=== PATIENT | female | born 1980 | race American Indian/Alaskan Native ===

== ENCOUNTER 2018-05-11 15:48 | Emergency (ER) | payer SELFPAY ==
[2018-05-11 15:48] VITALS: BMI 32.5
--- NOTE | 2018-05-11 17:01 | C.PDOC ---
History Of Present Illness 37-year-old female presents to the ED with new-onset low back pain that began this morning. Pain has been occasionally radiating to the left chest. On arrival left chest pain is now resolved, patient still complaining of residual back pain. Her back pain is sharp and worsened with deep inspiration or movement. Associated with dyspnea on exertion. Patient admits she is noncompliant with her blood pressure meds. Denies prior history of cardiac disease and leg pain/swelling. Patient reports improvement after given NG, ASA by EMS. EXAM MILD DIST NONTOXIC BACK +L SCAPULAR AREA TEND NO SWELL. LIMITED ROM DUE TO PAIN. NO SPINAL TEND LUNGS CTA B/L NO W/R/R ABD NEG EXT NO EDEMA, NONTEND REMAINDER NEG Time Seen by Provider: 05/11/18 16:51 Chief Complaint (Nursing): Back Pain History Per: Patient History/Exam Limitations: no limitations Onset/Duration Of Symptoms: Hrs Current Symptoms Are (Timing): Still Present Past Medical History Reviewed: Historical Data, Nursing Documentation, Vital Signs Vital Signs: Last Vital Signs Temp 98.4 F 05/11/18 18:17 Pulse 92 H 05/11/18 18:17 Resp 17 05/11/18 18:17 BP 118/74 05/11/18 18:17 Pulse Ox 96 05/11/18 18:17 - Medical History PMH: HTN Family History: States: Unknown Family Hx - Social History Hx Tobacco Use: Yes Hx Alcohol Use: Yes Hx Substance Use: No - Immunization History Hx Tetanus Toxoid Vaccination: No Hx Influenza Vaccination: No Hx Pneumococcal Vaccination: No Review Of Systems Except As Marked, All Systems Reviewed And Found Negative. Constitutional: Negative for: Fever, Chills Cardiovascular: Positive for: Chest Pain (now resolved) Respiratory: Positive for: SOB with Excertion Gastrointestinal: Negative for: Nausea, Vomiting Genitourinary: Negative for: Dysuria, Frequency, Incontinence Musculoskeletal: Positive for: Back Pain. Negative for: Leg Pain (or swelling) Neurological: Negative for: Weakness, Numbness, Headache, Dizziness Physical Exam - Physical Exam Appears: Non-toxic, In Acute Distress (mild distress) Skin: Normal Color, Warm Head: Atraumatic, Normacephalic Eye(s): bilateral: Normal Inspection Oral Mucosa: Moist Neck: Normal ROM Chest: Symmetrical, No Tenderness Cardiovascular: Rhythm Regular, No Murmur Respiratory: Normal Breath Sounds, No Rales, No Rhonchi, No Wheezing Gastrointestinal/Abdominal: Soft, No Tenderness, No Distention Back: No Vertebral Tenderness, Decreased ROM (Limited ROM secondary to pain), Paraspinal Tenderness (Left scapular area tender to palpation) Extremity: Bilateral: Atraumatic, No Pedal Edema, Normal Color And Temperature Pulses: Left Dorsalis Pedis: Normal, Right Dorsalis Pedis: Normal Neurological/Psych: Oriented x3, Normal Speech, Normal Cranial Nerves, Other ( No focal deficits) ED Course And Treatment - Laboratory Results Result Diagrams: 05/11/18 17:17 05/11/18 17:17 ECG: Interpreted By Me ECG Rhythm: Sinus Rhythm, Sinus Tachycardia (101) ECG Interpretation: Abnormal O2 Sat by Pulse Oximetry: 96 (RA) Pulse Ox Interpretation: Normal - Radiology CXR: Viewed By Me, Read By Radiologist CXR Interpretation: Yes: No Acute Disease. No: Infiltrates Progress - Re-Evaluation Re-evaluation Note: 05/11/18 18:13 FEELS BETTER SP TORADOL. VSS. - Data Reviewed Data Reviewed: Lab, Diagnostic imaging, EKG Medical Decision Making Medical Decision Making: Impression: Back pain, resolved chest pain Initial Plan: --EKG --CMP --Troponin I --CBC --D dimer --Chest X-Ray --Toradol 30 mg IVP Disposition Counseled Patient/Family Regarding: Studies Performed, Diagnosis, Need For Followup - Disposition Referrals: YOUR,PMD [Other] Disposition: HOME/ ROUTINE Disposition Time: 18:14 Condition: IMPROVED Additional Instructions: TAKE HYPERTENSION MEDICATIONS PRESCRIBED. TAKE MOTRIN 3 TABS EVERY 6-8 HRS NEEDED. FOLLOW UP WITH YOUR PMD. RETURN IF WORSENING SYMPTOMS. Instructions: Upper Back Pain (DC) Forms: [employer] [facility] (New Zealander), Work Excuse - Clinical Impression Clinical Impression: Back pain, Chest pain - Scribe Statement The provider has reviewed the documentation as recorded by the David Tolentino Provider Attestation: All medical record entries made by the Yesyibtonny were at my direction and personally dictated by me. I have reviewed the chart and agree that the record accurately reflects my personal performance of the history, physical exam, medical decision making, and the department course for this patient. I have also personally directed, reviewed, and agree with the discharge instructions and disposition.
[2018-05-11 17:25] LABS: BASO % 0.3 % (0.0-2.0); EOS % 0.5 % (0.0-4.0); HEMOGLOBIN 11.3 g/dL (11.0-16.0); LYMPH # 1.8 K/uL (1.0-4.3); LYMPH % 22.6 % (20.0-40.0); MEAN CELL VOLUME 88.3 fL (81.0-99.0); MEAN CORPUSCULAR HEMOGLOBIN 28.5 pg (27.0-31.0); MEAN CORPUSCULAR HGB CONC 32.3 g/dL (33.0-37.0); MEAN PLATELET VOLUME 9.6 fL (7.2-11.7); MONO # 0.9 K/uL (0.0-0.8); MONO % 11.6 % (0.0-10.0); NEUT # 5.3 K/uL (1.8-7.0); NRBC % 0.1 % (0.0-2.0); RBC 3.95 Mil/uL (3.80-5.20); RED CELL DISTRIBUTION WIDTH 14.5 % (11.5-14.5); WHITE BLOOD COUNT 8.2 K/uL (4.8-10.8)
--- NOTE | 2018-05-11 17:32 | RAD ---
Date of service: 05/11/2018 PROCEDURE: CHEST RADIOGRAPH, 1 VIEW HISTORY: chest pain COMPARISON: Chest radiograph dated 12/22/2015. FINDINGS: LUNGS: Clear. PLEURA: No pneumothorax or pleural fluid seen. CARDIOVASCULAR: Normal. OSSEOUS STRUCTURES: No significant abnormalities. VISUALIZED UPPER ABDOMEN: Normal. OTHER FINDINGS: None. IMPRESSION: No active disease.
[2018-05-11 17:42] LABS: ALB/GLOB RATIO 1.2 (1.0-2.1); ALT/SGPT 30 U/L (9-52); AST/SGOT 30 U/L (14-36); BLOOD UREA NITROGEN 8 mg/dL (7-17); CALCIUM 9.2 mg/dl (8.6-10.4); GFR AFRICAN-AMERICAN > 60; GFR NON-AFRICAN AMERICAN > 60
[2018-05-11 17:50] VITALS: PULSE 92; RESP 17
[2018-05-11 18:16] VITALS: O2SAT 96
[2018-05-11 18:18] VITALS: BP 118/74; TEMP 98.4
--- NOTE | 2018-05-12 12:09 | CARD ---
APPROVED REPORT Date of service: 05/11/2018 EKG Measurement Heart [id number] [place] 130P38 [id number] <Conclusion> Sinus tachycardia Nonspecific T wave abnormality Abnormal ECG
== END 2018-05-11 18:25 | disposition home or self-care (01) ==
LOC: C.ER 15:48
DX: M54.5 Low back pain (principal); R07.9 Chest pain, unspecified
CPT/HCPCS: 36415; 71045; 80053; 84484; 85025; 85378; 93005; 96374; 99284; J1885

== ENCOUNTER 2018-09-04 10:27 | Emergency (ER) | payer BC, OTHER ==
[2018-09-04 10:27] VITALS: BMI 32.5
[2018-09-04 10:40] VITALS: TEMP 97.5; O2SAT 96
[2018-09-04] MEDS ORDERED: Albuterol-Ipratrop 3 mg / 0.5 (3 ml) UD INH STA ×2 (11:35→12:44)
[2018-09-04] MEDS ORDERED: Albuterol-Ipratrop 3 mg / 0.5 (3 ml) UD ONE ×2 (11:42→12:53)
--- NOTE | 2018-09-04 12:50 | C.PDOC ---
History Of Present Illness 37 year old female with a history of asthma/COPD presents to the ED for evaluation of cough, headache, and body aches for 3-4 days. Patient reports prior visit to PMD on Tuesday, who prescribed cough medication, which she has not yet taken. Admits to using an unknown inhaler at home, and albuterol nebulizer without any improvement. Denies fever, nausea, vomiting, sick contact, flu vaccine this year. Time Seen by Provider: 09/04/18 11:08 Chief Complaint (Nursing): Cough, Cold, Congestion History Per: Patient History/Exam Limitations: no limitations Onset/Duration Of Symptoms: Days (4) Current Symptoms Are (Timing): Still Present Location Of Pain: Headache Sick Contacts (Context): None Associated Symptoms: Cough, Sputum. denies: Fever, Sore Throat, Nausea, Vomiting Ear Symptoms: Bilateral: None Past Medical History Reviewed: Historical Data, Nursing Documentation, Vital Signs Vital Signs: Last Vital Signs Temp 97.5 F L 09/04/18 10:36 Pulse 107 H 09/04/18 10:36 Resp 18 09/04/18 10:36 BP 151/90 H 09/04/18 10:36 Pulse Ox 96 09/04/18 10:36 - Medical History PMH: Asthma, COPD, HTN Family History: States: Unknown Family Hx - Social History Hx Tobacco Use: Yes Hx Alcohol Use: Yes Hx Substance Use: No - Immunization History Hx Tetanus Toxoid Vaccination: No Hx Influenza Vaccination: No Hx Pneumococcal Vaccination: No Review Of Systems Constitutional: Positive for: Malaise, Other (myalgias). Negative for: Fever, Chills ENT: Negative for: Ear Pain, Throat Pain Cardiovascular: Negative for: Chest Pain Respiratory: Positive for: Cough, Shortness of Breath Gastrointestinal: Negative for: Nausea, Vomiting, Abdominal Pain Skin: Negative for: Rash Neurological: Positive for: Headache. Negative for: Weakness, Numbness Physical Exam - Physical Exam Appears: Non-toxic, No Acute Distress Skin: Warm, Dry Head: Atraumatic, Normacephalic Eye(s): bilateral: Normal Inspection Ear(s): Bilateral: Normal Nose: Other (congested. ) Oral Mucosa: Moist Throat: No Erythema, No Exudate Neck: Normal ROM, Supple Cardiovascular: Rhythm Regular, No Murmur Respiratory: Decreased Breath Sounds (bilaterally, worse on the right ), No Accessory Muscle Use, No Rales, No Rhonchi, No Wheezing Neurological/Psych: Oriented x3, Normal Speech, Normal Cognition ED Course And Treatment O2 Sat by Pulse Oximetry: 96 (RA) Pulse Ox Interpretation: Normal Medical Decision Making Medical Decision Making: Plan: -CXR Duoneb Zithromax Prednisone POC Urine Influenza A B 1330 pt feeling better after nebs with increased air movement,no wheezing. no infiltrate on xray. flu negative. will d/c with zpak and prednisone. advised not to use inhaler with steroids while taking po steroids, pt understands. pt with pf 330 after second neb., max pf unknown. Disposition Counseled Patient/Family Regarding: Studies Performed, Diagnosis, Need For Followup, Rx Given - Disposition Referrals: Abel Hardy MD [Staff Provider] - Disposition: HOME/ ROUTINE Disposition Time: 13:46 Condition: IMPROVED Additional Instructions: Finish steroids and antibiotics as prescribed., Use albuterol inhaler 3-4 times per day. Use albuterol inhaler 1-2 puffs every 6 hours if needed. Follow up with Dr Hardy in 1-2 days. Do not take inhaled steroid until finish taking steroids by mouth. Return to ER for any worse symptoms. Take Tylenol or Motrin for pain if needed. Prescriptions: Albuterol 0.083% [Albuterol 0.083% Inhal Kari (2.5 mg/3 ml) UD] 2.5 mg IH TID #100 neb Azithromycin [Zithromax] 250 mg PO DAILY #4 tab predniSONE [predniSONE Tab] 2 tab PO DAILY #8 tab Instructions: Upper Respiratory Infection (ED) Forms: General Discharge Instructions, [facility] (Romanian), Work Excuse - Clinical Impression Clinical Impression: Upper respiratory infection - PA / ACCELERATOR SYSTEMS DIRECTOR / Resident Statement MD/DO has reviewed & agrees with the documentation as recorded. - Scribe Statement The provider has reviewed the documentation as recorded by the Scribe (Marleny Mcmillan) All medical record entries made by the Scribe were at my direction and personally dictated by me. I have reviewed the chart and agree that the record accurately reflects my personal performance of the history, physical exam, medical decision making, and the department course for this patient. I have also personally directed, reviewed, and agree with the discharge instructions and disposition.
--- NOTE | 2018-09-04 13:29 | RAD ---
Date of service: 09/04/2018 HISTORY: coughand wheeze COMPARISON: 05/11/2018 TECHNIQUE: Chest PA and lateral FINDINGS: LUNGS: No active pulmonary disease. PLEURA: No significant pleural effusion identified. No pneumothorax apparent. CARDIOVASCULAR: No aortic atherosclerotic calcification present. Normal cardiac size. No pulmonary vascular congestion. OSSEOUS STRUCTURES: No significant abnormalities. VISUALIZED UPPER ABDOMEN: Normal. OTHER FINDINGS: None. IMPRESSION: No active disease.
[2018-09-05 00:20] VITALS: BP 142/90; PULSE 94; RESP 16
== END 2018-09-04 13:57 | disposition home or self-care (01) ==
LOC: C.ER 10:27
DX: J06.9 Acute upper respiratory infection, unspecified (principal)

== ENCOUNTER 2018-09-07 18:58 | Emergency (ER) | payer SELFPAY ==
[2018-09-07 18:58] VITALS: BMI 32.5
[2018-09-07 19:08] VITALS: BP 151/96; PULSE 90; RESP 16; TEMP 98.6; O2SAT 98
[2018-09-07] MEDS ORDERED: Tdap Vaccine 0.5 ml Vial (10-64 yrs) IM ONE ×2 (19:23→19:37)
[2018-09-07] MEDS ORDERED: Bacitracin 500 Units/gm Oint Foilpak UD TOP ONE (19:24)
[2018-09-07] MEDS ORDERED: Lidocaine Hydrochloride 5 ML INJ ONE (19:24)
[2018-09-07] MEDS ORDERED: Bacitracin 500 Units/gm Oint Foilpak UD ONE (19:37)
--- NOTE | 2018-09-07 19:50 | C.PDOC ---
History Of Present Illness 37 year old female presents to the ED for evaluation of a laceration to the left 2nd finger s/p injury sustained approximately 30 minutes prior to arrival. Patient reports she cut her index finger on an open can of tuna. Notes she is right hand dominant. Denies other injuries and any other associated symptoms. Time Seen by Provider: 09/07/18 19:12 Chief Complaint (Nursing): Abnormal Skin Integrity History Per: Patient History/Exam Limitations: no limitations Onset/Duration Of Symptoms: Hrs Current Symptoms Are (Timing): Still Present Past Medical History Reviewed: Historical Data, Nursing Documentation, Vital Signs Vital Signs: Last Vital Signs Temp 98.6 F 09/07/18 19:06 Pulse 90 09/07/18 19:06 Resp 16 09/07/18 19:06 BP 151/96 H 09/07/18 19:06 Pulse Ox 98 09/07/18 19:06 - Medical History PMH: Asthma, COPD, HTN Family History: States: Unknown Family Hx - Social History Hx Tobacco Use: Yes Hx Alcohol Use: Yes Hx Substance Use: No - Immunization History Hx Tetanus Toxoid Vaccination: No Hx Influenza Vaccination: No Hx Pneumococcal Vaccination: No Review Of Systems Skin: Positive for: Other (laceration to the left index finger. ) Physical Exam - Physical Exam Appears: Well, Non-toxic, No Acute Distress Skin: Warm, Dry, Other (1cm linear laceration to the left 2nd finger. ) Head: Atraumatic, Normacephalic Eye(s): bilateral: Normal Inspection, PERRL, EOMI Oral Mucosa: Moist Neck: Normal ROM Extremity: Normal ROM, Capillary Refill (< 2 sec), No Swelling Pulses: Left Radial: Normal, Right Radial: Normal Neurological/Psych: Oriented x3, Normal Speech, Normal Motor, Normal Sensation Gait: Steady ED Course And Treatment O2 Sat by Pulse Oximetry: 98 (RA) Pulse Ox Interpretation: Normal Procedure: Wound Repair - Time Out Time Out: Side verified, Site verified - Procedure Procedure: Wound Repair: Finger laceration - Consent Obtained Consent obtained: Verbal - Performed by Performed by: Mid-level Provider - Indications Indication(s):: Laceration - Location Finger:: Left, Index Shape:: Linear Depth:: Epidermis - Anesthetic Technique Anesthetic Technique: Local Local/Regional Anesthetic:: Lidocaine 2% - Debris Debris:: None - Irrigated Irrigated with ml of normal saline: 500cc pressurized saline and betadine - Complexity Complexity:: Simple (one layer) - Wound repair method Sutures:: # (x4), Size (4-0), Type (nylon ), Technique (simple) - Muscle repiar layer closed with Muscle repair layer closed with:: Abx ointment applied, Dressing applied, Tetanus ordered - Patient tolerated procedure Patient Tolerated Procedure:: Well Medical Decision Making Medical Decision Making: Plan: -Tetanus Procedure note: x4 stitches. Tetanus given. Progress/Update: Patient stable for discharge home. Prescribed Bacitracin. Disposition - Disposition Referrals: Abel Hardy MD [Staff Provider] - Disposition: HOME/ ROUTINE Disposition Time: 19:50 Condition: STABLE Additional Instructions: Keep the wound covered for today and tomorrow. Uncover it on Tuesday. Then wash twice and day with soap and water and then apply bacitracin. Keep it covered. Sutures to be removed within 7 days. Return if worsened Prescriptions: Bacitracin Ointment [Bacitracin] 30 gm TOP BID #1 tube Instructions: Laceration Repair Forms: [facility] [employer] [facility] (Ethiopian), Work Excuse - Clinical Impression Clinical Impression: Laceration of finger - PA / MACHINE STRAP BUCKLER / Resident Statement MD/DO has reviewed & agrees with the documentation as recorded. - Scribe Statement The provider has reviewed the documentation as recorded by the Scribe (Marleny Mcmillan) All medical record entries made by the Scribe were at my direction and personally dictated by me. I have reviewed the chart and agree that the record accurately reflects my personal performance of the history, physical exam, medical decision making, and the department course for this patient. I have also personally directed, reviewed, and agree with the discharge instructions and disposition.
== END 2018-09-07 20:13 | disposition home or self-care (01) ==
LOC: C.ER 18:58
DX: S61.211A Laceration without foreign body of left index finger without damage to nail, initial encounter (principal); W45.8XXA Other foreign body or object entering through skin, initial encounter

== ENCOUNTER 2018-09-20 20:24 | Emergency (ER) | payer SELFPAY ==
[2018-09-20 20:25] VITALS: BMI 32.5
[2018-09-20 20:38] VITALS: BP 145/103; PULSE 102; TEMP 98.3; O2SAT 97
[2018-09-20] MEDS ORDERED: Bacitracin 500 Units/gm Oint Foilpak UD TOP ONE (21:02)
[2018-09-20] MEDS ORDERED: Bacitracin 500 Units/gm Oint Foilpak UD ONE (21:04)
[2018-09-20 21:21] VITALS: RESP 20
--- NOTE | 2018-09-20 21:26 | C.PDOC ---
History Of Present Illness 37 year old female presents to the ED for suture removal. Patient was evaluated in the ED on 09/07 after she accidentally cut her left 2nd finger while opening a can of tuna. Patient states the wound has been healing well. She denies fever, chills, discharge or pain. Time Seen by Provider: 09/20/18 20:39 Chief Complaint (Nursing): Suture/Staple Removal History Per: Patient History/Exam Limitations: no limitations Onset/Duration Of Symptoms: Days Ago Current Symptoms Are (Timing): Still Present Location Of Injury: Left: Hand (2nd finger ) Quality Of Symptoms: denies: Painful, Itching, Swollen, Draining Additional History Per: Patient Past Medical History Reviewed: Historical Data, Nursing Documentation, Vital Signs Vital Signs: Last Vital Signs Temp 98.3 F 09/20/18 20:35 Pulse 102 H 09/20/18 20:35 Resp 20 09/20/18 21:19 BP 145/103 H 09/20/18 20:35 Pulse Ox 97 09/20/18 20:35 - Medical History PMH: Asthma, COPD, HTN Surgical History: No Surg Hx Family History: States: Unknown Family Hx - Social History Hx Tobacco Use: Yes Hx Alcohol Use: Yes Hx Substance Use: No - Immunization History Hx Tetanus Toxoid Vaccination: No Hx Influenza Vaccination: No Hx Pneumococcal Vaccination: No Review Of Systems Skin: Positive for: Other (suture removal from left second finger ) Physical Exam - Physical Exam Appears: Non-toxic, No Acute Distress Skin: Normal Color, Warm, Dry, Other (healing wound to left second finger with 4 sutures intact. no signs of infection ) Extremity: Normal ROM Neurological/Psych: Normal Speech, Normal Cognition ED Course And Treatment O2 Sat by Pulse Oximetry: 97 (on RA) Pulse Ox Interpretation: Normal Medical Decision Making Medical Decision Making: Progress: four sutures removed successfully by me. Patient tolerated well and is stable for discharge. Disposition - Disposition Referrals: Maritza Markham MD [Staff Provider] - Disposition: HOME/ ROUTINE Disposition Time: 21:00 Condition: STABLE Additional Instructions: Follow up with the medical doctor within 1-2 days. Return if worsened. Instructions: Stitches Removal Forms: [employer] ([place]er) - Clinical Impression Clinical Impression: Removal of suture - PA / MARKET RESEARCH ASSISTANT / Resident Statement MD/DO has reviewed & agrees with the documentation as recorded. - Scribe Statement The provider has reviewed the documentation as recorded by the Scribe (Akua Khanna) All medical record entries made by the Scribe were at my direction and personally dictated by me. I have reviewed the chart and agree that the record accurately reflects my personal performance of the history, physical exam, medical decision making, and the department course for this patient. I have also personally directed, reviewed, and agree with the discharge instructions and disposition.
== END 2018-09-20 21:20 | disposition home or self-care (01) ==
LOC: C.ER 20:24
DX: Z48.02 Encounter for removal of sutures (principal)

== ENCOUNTER 2019-01-15 20:48 | Emergency (ER) | payer OTHER ==
[2019-01-15 20:48] VITALS: BMI 32.5
[2019-01-15 21:13] VITALS: BP 139/90; PULSE 97; RESP 20; TEMP 98.3; O2SAT 98
--- NOTE | 2019-01-15 21:49 | C.PDOC ---
History Of Present Illness 38 year old female presents with productive cough for several days. Denies fever. Patient reports she is a smoker, denies asthma exacerbation. She reports pleuritic pain worse from coughing. Denies other associated symptoms. PROD COUGH X SEV DAYS. NO FEVER. +SMOKER. DENIES ASTHMA EXAC. +PLEURITIC PAIN WORSE FROM COUGHING. NO OTHER ASSOC SX EXAM NONTOXIC LUNGS CTA B/L NO W/R/R +OCC WET COUGH SPEAKING FULL SENTENCES NO RETRACTION REMAINDER NEG Time Seen by Provider: 01/15/19 21:42 Chief Complaint (Nursing): Flu-like Symptoms History Per: Patient History/Exam Limitations: no limitations Onset/Duration Of Symptoms: Days Current Symptoms Are (Timing): Still Present Location Of Pain: Other (Pleuritic) Sick Contacts (Context): None Associated Symptoms: Cough, Sputum. denies: Fever Recent travel outside of the [place]: No Past Medical History Reviewed: Historical Data, Nursing Documentation, Vital Signs Vital Signs: Last Vital Signs Temp 98.3 F 01/15/19 21:12 Pulse 97 H 01/15/19 21:12 Resp 20 01/15/19 21:12 BP 139/90 01/15/19 21:12 Pulse Ox 98 01/15/19 21:12 - Medical History PMH: Asthma, COPD, HTN, Hypercholesterolemia Family History: States: Unknown Family Hx - Social History Hx Tobacco Use: Yes Hx Alcohol Use: Yes Hx Substance Use: No - Immunization History Hx Tetanus Toxoid Vaccination: No Hx Influenza Vaccination: No Hx Pneumococcal Vaccination: No Review Of Systems Except As Marked, All Systems Reviewed And Found Negative. Constitutional: Negative for: Fever, Chills Respiratory: Positive for: Cough, Pleuritic Pain, Sputum Physical Exam - Physical Exam Appears: Non-toxic Skin: Normal Color, Warm, No Rash Head: Atraumatic, Normacephalic Eye(s): bilateral: Normal Inspection Ear(s): Bilateral: Normal Nose: Normal Oral Mucosa: Moist Throat: Normal, No Erythema, No Exudate Neck: Normal, Supple Chest: Symmetrical, No Tenderness Cardiovascular: Rhythm Regular Respiratory: Normal Breath Sounds, No Accessory Muscle Use, No Rales, No Rhonchi, No Wheezing, Other (Occasional wet cough, speaking in complete sentences) Gastrointestinal/Abdominal: Soft, No Tenderness Neurological/Psych: Oriented x3, Normal Speech Gait: Steady ED Course And Treatment O2 Sat by Pulse Oximetry: 98 (Room air) Pulse Ox Interpretation: Normal Medical Decision Making Medical Decision Making: Plan: * Perri asif Disposition Counseled Patient/Family Regarding: Diagnosis, Need For Followup, Rx Given - Disposition Referrals: YOUR,PMD [Other] Disposition: HOME/ ROUTINE Disposition Time: 21:48 Condition: IMPROVED Prescriptions: Azithromycin 250 mg PO DAILY #6 tab Benzonatate [Tessalon Perles] 200 mg PO TID PRN #15 sgl PRN Reason: Cough Ibuprofen [Motrin] 600 mg PO Q6 #30 tab Instructions: Acute Bronchitis, Adult (DC) Forms: [employer] (Hungarian), Work Excuse - Clinical Impression Clinical Impression: Bronchitis - Scribe Statement The provider has reviewed the documentation as recorded by the Scribe Ankur Pineda All medical record entries made by the Scribe were at my direction and personally dictated by me. I have reviewed the chart and agree that the record accurately reflects my personal performance of the history, physical exam, medical decision making, and the department course for this patient. I have also personally directed, reviewed, and agree with the discharge instructions and disposition.
--- NOTE | 2019-01-18 06:47 | CARD ---
APPROVED REPORT Date of service: 01/15/2019 EKG Measurement Heart [id number] IN 126P38 [id number] <Conclusion> Normal sinus rhythm Normal ECG
== END 2019-01-15 21:58 | disposition home or self-care (01) ==
LOC: C.ER 20:48
DX: J40 Bronchitis, not specified as acute or chronic (principal); E78.00 Pure hypercholesterolemia, unspecified; I10 Essential (primary) hypertension; Z72.0 Tobacco use

== ENCOUNTER 2019-02-19 19:06 | Emergency (ER) | payer OTHER ==
[2019-02-19 19:07] VITALS: BMI 32.5
[2019-02-19 19:13] VITALS: O2SAT 97
--- NOTE | 2019-02-19 19:39 | C.PDOC ---
Time Seen by Provider: 02/19/19 19:38 Chief Complaint (Nursing): Chest Pain Past Medical History Vital Signs: Last Vital Signs Temp 97.6 F 02/19/19 19:10 Pulse 114 H 02/19/19 19:10 Resp 20 02/19/19 19:10 BP 134/82 02/19/19 19:10 Pulse Ox 97 02/19/19 19:10 Primary Care Provider: Abel Hardy - Medical History PMH: Asthma, COPD, HTN, Hypercholesterolemia Family History: States: Unknown Family Hx - Social History Hx Tobacco Use: Yes Hx Alcohol Use: Yes Hx Substance Use: No - Immunization History Hx Tetanus Toxoid Vaccination: No Hx Influenza Vaccination: No Hx Pneumococcal Vaccination: No ED Course And Treatment ECG: Interpreted By Me, Viewed By Me ECG Rhythm: Sinus Rhythm (102), Nonspecific Changes O2 Sat by Pulse Oximetry: 97 Pulse Ox Interpretation: Normal - Radiology CXR: Interpreted by Me, Viewed By Me Disposition Counseled Patient/Family Regarding: Studies Performed, Diagnosis - Disposition Disposition Time: 19:39
--- NOTE | 2019-02-19 19:40 | C.PDOC ---
History Of Present Illness Patient presents to the ED c/o chest pain with deep inspiration. Patient reports pain is associated with a cough and chills. Patient was for bronchitis a week ago. Patient states she still smokes couple of cigarettes a day. Patient able to speak in complete sentences. Patient denies fever, headache, nausea, vomit, rash, SOB, palpitations, weakness, numbness, recent travel, sick contacts. Time Seen by Provider: 02/19/19 19:38 Chief Complaint (Nursing): Chest Pain History Per: Patient History/Exam Limitations: no limitations Onset/Duration Of Symptoms: Days Current Symptoms Are (Timing): Still Present Recent travel outside of the [place]: No Additional History Per: Patient Past Medical History Reviewed: Historical Data, Nursing Documentation, Vital Signs Vital Signs: Last Vital Signs Temp 97.6 F 02/19/19 19:10 Pulse 114 H 02/19/19 19:10 Resp 20 02/19/19 19:10 BP 134/82 02/19/19 19:10 Pulse Ox 97 02/19/19 19:10 Primary Care Provider: Abel Hardy - Medical History PMH: Asthma, COPD, HTN, Hypercholesterolemia Surgical History: No Surg Hx Family History: States: Unknown Family Hx - Social History Hx Tobacco Use: Yes Hx Alcohol Use: Yes Hx Substance Use: No - Immunization History Hx Tetanus Toxoid Vaccination: No Hx Influenza Vaccination: No Hx Pneumococcal Vaccination: No Review Of Systems Constitutional: Positive for: Chills. Negative for: Fever ENT: Negative for: Nose Discharge, Nose Congestion Cardiovascular: Positive for: Chest Pain Respiratory: Positive for: Cough. Negative for: Shortness of Breath Gastrointestinal: Negative for: Nausea, Vomiting, Abdominal Pain Skin: Negative for: Rash Neurological: Negative for: Weakness, Numbness, Headache, Dizziness Physical Exam - Physical Exam Appears: Non-toxic, No Acute Distress Skin: Warm, Dry Head: Normacephalic Eye(s): bilateral: Normal Inspection Oral Mucosa: Moist Neck: Supple Chest: Symmetrical Cardiovascular: Rhythm Regular Respiratory: No Rales, No Rhonchi, No Wheezing Gastrointestinal/Abdominal: Soft, No Tenderness, No Distention Extremity: Bilateral: Atraumatic, Normal Color And Temperature, Normal ROM Neurological/Psych: Oriented x3, Normal Speech, Normal Cognition Gait: Steady ED Course And Treatment - Laboratory Results Result Diagrams: 02/19/19 20:35 02/19/19 20:35 ECG: Interpreted By Me, Viewed By Me ECG Rhythm: Sinus Rhythm (102), Nonspecific Changes O2 Sat by Pulse Oximetry: 97 (ON RA) Pulse Ox Interpretation: Normal - Radiology CXR: Interpreted by Me, Viewed By Me CXR Interpretation: No: Infiltrates, Fracture, Pnemothorax Progress Note: Plan: - VBG. - EKG. - Labs. - UA Reevaluation Time: 22:51 Reassessment Condition: Improved Medical Decision Making Medical Decision Making: I considered the following diagnoses: acute coronary syndrome, pulmonary embolism, lower respiratory infection, aortic dissection/aneurysm, pneumothorax, pericarditis, esophagitis/GERD, zoster and esophageal rupture but found them to be unlikely based on the history, physical exam, and diagnostics. My conclusions regarding the unlikely diagnoses were based on: the absence of significant EKG abnormalities, the lack of suggestive x-ray findings, the absence of significant abnormalities on cardiac monitoring, the absence of asymmetric pulses, Pt is cp free and wants to go home Disposition Counseled Patient/Family Regarding: Studies Performed, Diagnosis, Need For Followup, Rx Given - Disposition Referrals: Abel Hardy MD [Staff Provider] - Disposition: HOME/ ROUTINE Disposition Time: 19:40 Condition: FAIR Additional Instructions: Please return if symptoms recur Prescriptions: Albuterol HFA [Ventolin HFA 90 mcg/actuation (8 g)] 2 puff IH [id number] PRN #1 puff PRN Reason: Wheezing Naproxen [Naprosyn] 1 tab PO BID PRN #25 tab PRN Reason: Pain Instructions: Costochondritis (DC) Forms: [facility] (Algerian) - Clinical Impression Clinical Impression: Pleuritic pain, Costochondral chest pain - Scribe Statement The provider has reviewed the documentation as recorded by the Scribe Kevon Javed All medical record entries made by the Scribe were at my direction and personally dictated by me. I have reviewed the chart and agree that the record accurately reflects my personal performance of the history, physical exam, medical decision making, and the department course for this patient. I have also personally directed, reviewed, and agree with the discharge instructions and disposition.
[2019-02-19 20:41] LABS: HCG,QUALITATIVE URINE NEGATIVE (NEGATIVE)
[2019-02-19 20:42] LABS: BASO # 0.1 K/uL (0.0-0.2); BASO % 0.5 % (0.0-2.0); EOS % 0.3 % (0.0-4.0); LYMPH # 1.5 K/uL (1.0-4.3); LYMPH % 15.7 % (20.0-40.0); MEAN CELL VOLUME 79.7 fL (81.0-99.0); MEAN CORPUSCULAR HGB CONC 32.6 g/dL (33.0-37.0); MEAN PLATELET VOLUME 8.9 fL (7.2-11.7); MONO # 0.8 K/uL (0.0-0.8); MONO % 7.8 % (0.0-10.0); NEUT # 7.3 K/uL (1.8-7.0); NEUT % 75.7 % (50.0-75.0); RBC 4.24 Mil/uL (3.80-5.20); RED CELL DISTRIBUTION WIDTH 17.8 % (11.5-14.5); WHITE BLOOD COUNT 9.7 K/uL (4.8-10.8)
[2019-02-19 20:46] LABS: SQUAMOUS EPITHIAL 14 /hpf (0-5); URINE BILIRUBIN NEGATIVE (NEGATIVE); URINE BLOOD NEGATIVE (NEGATIVE); URINE CALCIUM OXALATE CRYSTALS OCC /hpf (<OCC); URINE CLARITY Hazy (Clear); URINE COLOR YELLOW (YELLOW); URINE GLUCOSE (UA) NORMAL (Normal); URINE LEUKOCYTE ESTERASE NEG Leu/uL (Negative); URINE PROTEIN 1+ mg/dL (NEGATIVE)
[2019-02-19 20:51] LABS: VENOUS BLOOD GAS BASE EXCESS 2.9 mmol/L (0.0-2.0); VENOUS BLOOD GAS PCO2 43 mmHg (40-60); VENOUS BLOOD GAS PO2 32 mm/Hg (30-55); VENOUS BLOOD PH 7.42 (7.32-7.43)
[2019-02-19 20:51] LABS: INR 1.1; PROTHROMBIN TIME 11.5 SECONDS (9.7-12.2)
[2019-02-19 21:07] LABS: ALBUMIN 3.9 g/dL (3.5-5.0); ALT/SGPT 28 U/L (9-52); AST/SGOT 52 U/L (14-36); BLOOD UREA NITROGEN 8 mg/dL (7-17); CALCIUM 9.4 mg/dl (8.6-10.4); GFR NON-AFRICAN AMERICAN > 60
[2019-02-19 21:16] LABS: B-TYPE NATRIURETIC PEPTIDE 29.7 pg/mL (0-450)
[2019-02-19] MEDS ORDERED: Albuterol-Ipratrop 3 mg / 0.5 (3 ml) UD ONE ×2 (21:44→22:31)
[2019-02-19] MEDS: Albuterol-Ipratrop 3 mg / 0.5 (3 ml) UD IH SCH (22:28)
[2019-02-19 23:26] VITALS: BP 123/75; PULSE 110; RESP 22; TEMP 98.3
--- NOTE | 2019-02-20 11:40 | RAD ---
HISTORY: back pain, cough COMPARISON: Chest x-ray performed 09/04/18 TECHNIQUE: Chest PA and lateral, 2 views FINDINGS: Examination limited by habitus. LUNGS: No focal consolidation. Please note that chest x-ray has limited sensitivity for the detection of pulmonary masses. PLEURA: No significant pleural effusion identified. No definite pneumothorax . CARDIOVASCULAR: Heart size appears top normal. No atherosclerotic calcification present. OSSEOUS STRUCTURES: No acute osseous abnormality identified. VISUALIZED UPPER ABDOMEN: Unremarkable. OTHER FINDINGS: None. IMPRESSION: No focal consolidation.
--- NOTE | 2019-02-22 03:25 | CARD ---
APPROVED REPORT Date of service: 02/19/2019 EKG Measurement Heart [id number] <Conclusion> Sinus tachycardia Possible Left atrial enlargement Nonspecific T wave abnormality Abnormal ECG
== END 2019-02-19 23:23 | disposition home or self-care (01) ==
LOC: C.ER 19:06
DX: R07.89 Other chest pain (principal); I10 Essential (primary) hypertension; J44.9 Chronic obstructive pulmonary disease, unspecified; E78.00 Pure hypercholesterolemia, unspecified; F17.210 Nicotine dependence, cigarettes, uncomplicated
CPT/HCPCS: 71046; 80053; 81001; 82803; 83735; 83880; 84484; 84703; 85025; 85610; 85730; 94640; 96374; 99284; J1885